=== PATIENT | female | born 1955 | race African-American/Black ===

== ENCOUNTER 2017-06-12 11:12 | Outpatient (RCR) | payer MEDICARE, BC, SELFPAY ==
[2017-05-27 12:20] LABS: Absolute Lymphocyte Count 0.36 X10^3/ul (0.83-4.51); Basophil# 0.01 X10^3/uL; Basophil% 0.3 % (0-1); Eosinophil# 0.05 X10^3/uL; Eosinophils% 1.7 % (0-5); Hemoglobin 8.5 g/dl (12.0-15.0); Lymphocyte # 0.36 X10^3/ul (4.0); Mean Corp Hgb Conc 29.3 g/gl (32-36); Mean Corpuscular Hgb 25.2 pg (27.0-32.0); Mean Corpuscular Volume 86.1 fL (81-99); Mean Platelet Vol. 10.2 fl (6.2-12.0); Monocyte# 0.55 X10^3/uL; Monocyte% 18.4 % (0-10); Neutrophil # 2.01 X10^3/uL (2.7-7.7); Neutrophil % 67.3 % (47-70); Platelet Count 218 K/mm3 (150-450); RBC Distribution Width CV 15.5 % (11.6-14.6); RBC Distribution Width SD 47.2 fl (35.1-43.9); Red Blood Count 3.37 M/mm3 (4.2-5.4)
[2017-05-27 12:21] LABS: Differential Indicated SCAN CRITERIA MET; POSITIVE COUNT NO; POSITIVE DIFFERENTIAL YES; POSITIVE MORPHOLOGY NO
[2017-05-27 12:29] LABS: International Normalized Ratio 2.4; Prothrombin Time (Protime)PT. 25.5 SECONDS (11.7-14.9)
[2017-05-27 12:47] LABS: Ferritin 177 ng/mL (8-252); Iron 62 ug/dL (50-170); Iron Binding Capacity,Total 199 ug/dL (250-450)
[2017-05-28 11:04] LABS: Pathologist Review Reviewed
[2017-06-12 12:52] LABS: Hematocrit 28.4 % (37-47); Hemoglobin 8.3 g/dl (12.0-15.0); Mean Corp Hgb Conc 29.2 g/gl (32-36); Mean Corpuscular Hgb 24.9 pg (27.0-32.0); Mean Platelet Vol. 9.9 fl (6.2-12.0); Platelet Count 219 K/mm3 (150-450); RBC Distribution Width CV 15.5 % (11.6-14.6); RBC Distribution Width SD 48.1 fl (35.1-43.9); Red Blood Count 3.34 M/mm3 (4.2-5.4); White Blood Count 3.3 K/mm3 (4.4-11.0)
[2017-06-12 12:55] LABS: Scan Indicated on CBC? Y/N NO
[2017-06-12 13:03] LABS: International Normalized Ratio 2.5; Prothrombin Time (Protime)PT. 26.2 SECONDS (11.7-14.9)
[2017-06-12 13:08] LABS: Protein, Urine (Random) 31.6 mg/dL (<11.9); Protein:Creat Ratio 485 mg/g CRE (0-200)
[2017-06-12 13:19] LABS: BUN 20 mg/dL (7-18); Creatinine, Serum 1.01 mg/dL (0.55-1.02); Glucose 71 mg/dL (70-110)
[2017-06-12 13:20] LABS: AST(SGOT) 33 U/L (15-37); Alanine Aminotransfer ALT/SGPT 26 U/L (12-78); Albumin, Serum 3.5 g/dL (3.4-5.0); Calcium,Total 8.6 mg/dL (8.5-10.1); Chloride 105 mmol/L (98-107); Cholesterol 233 mg/dL (200); EST Glomerular Filtration Rate 59 mL/min (>60); Est Glom Filt Rate - Afr Amer 71 mL/min (>60); Ferritin 140 ng/mL (8-252); High Density Lipoprotein 78 mg/dL; Iron 93 ug/dL (50-170); Iron Binding Capacity,Total 201 ug/dL (250-450); Potassium 3.9 mmol/L (3.5-5.1); Sodium Level 138 mmol/L (136-145); Triglycerides 104 mg/dL; Uric Acid 3.8 mg/dL (2.6-6.0); Very Low Density Lipoprotein 21 mg/dL (5-40)
[2017-06-12 13:50] LABS: PTHIN 182.8 pg/mL (18.4-80.1)
[2017-06-15 14:38] LABS: Everolimus 10.6 ng/mL (3.0-8.0)
== END 2017-06-12 11:30 | disposition home or self-care (01) ==
LOC: LAB 11:12
PROVIDERS: Visit Provider Internal Medicine Cardiovascular Disease
DX: Z79.01 Long term (current) use of anticoagulants (principal); I36.1 Nonrheumatic tricuspid (valve) insufficiency; I34.2 Nonrheumatic mitral (valve) stenosis; I35.0 Nonrheumatic aortic (valve) stenosis; Z94.0 Kidney transplant status; Z51.81 Encounter for therapeutic drug level monitoring; Z79.899 Other long term (current) drug therapy; Z48.298 Encounter for aftercare following other organ transplant; Z86.2 Personal history of diseases of the blood and blood-forming organs and certain disorders involving the immune mechanism
CPT/HCPCS: 36415; 80061; 80169; 82040; 82247; 82310; 82374; 82435; 82565; 82570; 82728; 82947; 83540; 83550; 83735; 83970; 84132; 84156; 84295; 84450; 84460; 84520; 84550; 85025; 85027; 85610